=== PATIENT | female | born 1940 | race Caucasian/White ===

== ENCOUNTER 2017-02-24 07:50 | Day surgery (SDC) | payer MEDICARE ==
[~2017-02-24] VITALS: Ht 157.5 cm; Wt 54.2 kg
[~2017-02-24 07:50] MED LIST: NORE-3 PO; TRIA1TAB3 PO
[2017-02-24] MEDS ORDERED: Ondansetron 2 mg/mL 2 mL Inj ONE (07:51)
[2017-02-24] MEDS ORDERED: Dexamethasone 4 mg/mL Inj ONE (07:51)
[2017-02-24] MEDS ORDERED: Propofol 10,000 mCg/mL 20 mL Inj ONE (07:51)
[2017-02-24] MEDS ORDERED: fentaNYL-PF 50 mCg/mL 2 mL Inj ONE (07:51)
[2017-02-24 08:17] VITALS: BP 145/81; PULSE 64; RESP 16; O2SAT 99
[2017-02-24] MEDS: Lactated Ringer's 1,000 ML IV SCH ×2 (08:17→11:19)
[2017-02-24] MEDS ORDERED: Lactated Ringer's 500 ML IV PRN (10:58)
[2017-02-24] MEDS ORDERED: Lactated Ringer's 1,000 ML IV SCH (10:58)
--- NOTE | 2017-02-24 10:58 | PCM.HPANE ---
Patient Data Date of Service: February 24, 2017 ([id number]) Surgeon Admitting Provider: Attending Provider:Syed Wilson MD Primary Care Physician:Perfecto Fowler DO Other Provider:Kenny Bingham Anesthesia Reason for Visit Right Breast Cancer Ht/WT & BMI Height (Feet): 5 Height (Inches): 2 Weight (Kilograms): 54.2 Body Mass Index 21.00 Allergies Coded Allergies: Sulfa (Sulfonamide Antibiotics) (Verified Allergy, Unknown, UNKNOWN, ) Past Anesthesia History Anesthesia History: Positive for:: Anesthesia Reactions (SLOW TO EMERGE), Denies:: Malignant Hyperthermia Diabetes History Hx Diabetes?: No MRSA MRSA: No Medications Hypertension Medication: Yes (TRIAMTERENE/HCTZ) Home Meds Incl Beta Kings: No Reported Medications Norethind AC/Ethinyl Estradiol (Jinteli 1 mg-5 Mcg Tablet)1 Each Tablet0.5 Each PO QPM 02/22/17 Triamterene/HCTZ 37.5-25 mg 1 Each Tablet1 Tablet PO DAILY 0 02/20/17 History History of ENT Problems?: No HEENT History: Denies:: Abnormal Airway Denture Type: None Teeth Condition: Within Normal Limits Hx of Heart Problems?: Yes Cardiovascular History: Positive for:: Hypertension Denies:: Heart Murmur Irregular Heartbeat (RECENT INTERMITTANT BRADYCARDIA INTO 40'S-ASX) Other Cardiac History: C/OF BRUISING EASILY Hx of Respiratory Problem?: Yes Respiratory History: Positive for:: Asthma (INTERMITTANT) Denies:: Use of C-PAP Machine Hx Neurologic Problems?: Yes Hx of GI Problems?: Yes Other GI Pertinent History: S/P APPY Hx of Problems?: No Female Hx: Positive for:: Problems with Breasts? (S/P B/L BREAST BX'S RT BREAST CA=CURRENT PROBLEM) Denies:: Currently (HX MISSED AB) Skin History: Denies:: History Skin Disorders? Pressure Ulcers Hx Musculoskeletal Problems?: Yes Musculoskeletal History: Positive for:: Musculoskeletal Trauma (S/P FOOT SURGERY) Osteoarthritis (OSTEOPOROSIS) Hx of Psycho/Social Problems?: No Hx Surgeries?: Yes (APPENDECTOMY/FOOT SURGERY, B/L BREAST BX'S) Hx Any Other Health Problems?: Yes Other History: Positive for:: Cancer (RT BREAST) Denies:: Thyroid Disease Hx Diabetes: No Smoking Status: Never Smoker Have You Smoked inLast 12 mo: No Stop/Bang S-Snoring: Do You Snore Loudly: No T-Tired: feel tired, fatigued: Yes O-Obsered: Observed not breath: No P-Blood Pressure: treated: Yes B- Body Mass Index > 35 kg/m2: No A- Age over 50: Yes N- Neck Large Circumference: No G- Gender Male: No DK Total Score: 3 DK Risk Assessment: Low Risk, <3 Yes Risk Assessment Category Category 1A: Patient has history of documented sleep apnea, and HAS NOT received any narcotic, sedative or anesthesia administration during this stay. Category 1B: Patient has history of documented sleep apnea, and HAS received any narcotic , sedative or anesthesia administration during this stay Category 2: Patient has SUSPECTED Obstructive Sleep Apnea, and HAS received any narcotic , sedative or anesthesia administration during this stay. Category 3: Patient has SUSPECTED Obstructive Sleep Apnea and HAS NOT received narcotic, sedative or anesthesia administration during this stay. Category 4: Outpatient in Procedural Areas with known sleep apnea or who screen positive for High Risk via the STOP/BANG questionnaire. Exam Exam Vital Signs Vital Signs Date Time Temp Pulse Resp B/P Pulse Ox O2 Delivery O2 Flow Rate FiO2 02/24/17 08:17 36.1 64 16 145/81 99 Room Air General Appearance: Alert, Oriented X3 HEENT/AIRWAY: MP 1 Lungs: Clear to Auscultation Heart: Exam Unremarkable Meds/Labs/Diagnostics Admission Meds Current Medications Lactated Ringer's (Lr) 1,000 ml @ 120 mls/hr Q8H20M IV Last administered on t 08:17; Start 02/24/17 at 05:00; Stop 02/24/17 at 13:19 Plan Impression Patient chart reviewed, patient interviewed and anesthestic plan with risks, benefits, and alternatives discussed, and informed consent obtained. NPO per Anesth. Guidelines: Yes ASA Physical Status: ASA2 Mod Systemic Disease Anesthetic Plan: GA Bene/Risks/Altern/Consents: Yes HP Complete Prior to Induction: Yes Antione Lopez MD February 24, 2017 10:57
[2017-02-24] MEDS ORDERED: Phenylephrine 10,000 mCg/mL Inj IVPUSH PRN (11:00)
[2017-02-24] MEDS ORDERED: HYDROmorphone 1 mg/mL Inj IVPUSH PRN (11:00)
[2017-02-24] MEDS ORDERED: Dexamethasone 4 mg/mL Inj IVPUSH PRN (11:00)
[2017-02-24] MEDS ORDERED: MetoCLOpramide 5 mg/mL 2 mL Inj IVPUSH PRN (11:00)
[2017-02-24] MEDS ORDERED: Ondansetron 2 mg/mL 2 mL Inj IVPUSH PRN (11:00)
[2017-02-24] MEDS ORDERED: EPHEDrine Sulfate 50 mg/mL Inj IVPUSH PRN (11:00)
[2017-02-24] MEDS ORDERED: fentaNYL-PF 50 mCg/mL 2 mL Inj IVPUSH PRN (11:00)
[2017-02-24] MEDS ORDERED: Bupivacaine 0.5%/EPI 50 mL Inj INFILTRATE ONE (11:38)
[2017-02-24 12:23] VITALS: BP 130/66; PULSE 70; RESP 13; O2SAT 99
--- NOTE | 2017-02-24 12:27 | PCM.ANEP1 ---
Post Anesthesia Phase 1 PACU Phase 1 Assessment Date of Service: February 24, 2017 ([id number]) Vital Signs 130/66, 73, 24, 99%, 36.7 Vital Signs Date Time Temp Pulse Resp B/P Pulse Ox O2 Delivery O2 Flow Rate FiO2 02/24/17 08:17 36.1 64 16 145/81 99 Room Air Anesthetic Administered: GA Level of Alertness: Awake, talking BATES's with Equal Strength: Yes Pain: No Nausea or Vomiting: No Oxygen Delivery: Room Air Lungs: Clear to Auscultation Dermatome Level: Full Sensation Summary uneventful GA Complications: No Follow up Care: No Antione Lopez MD February 24, 2017 12:27
[2017-02-24 12:30] VITALS: BP 123/60; PULSE 66; RESP 14; O2SAT 98
[2017-02-24] MEDS ORDERED: HYDROcodone-APAP 5-325 mg Tablet PO PRN (12:30)
[2017-02-24] MEDS ORDERED: Ketorolac 15 mg/mL Inj IVPUSH PRN (12:30)
--- NOTE | 2017-02-24 12:31 | PCM.DISURG ---
Surgical Discharge Instruction Date of Service February 24, 2017 Dates of Hospitalization Date of Hospital Admission Providers Admitting Physician: Primary Care Physician: Perfecto Fowler DO Attending Physician: Syed Wilson MD Discharge Diagnosis Discharge Diagnosis Right breast cancer Diet Discharge Diet: No restrictions Activity Discharge Activity-General: No restrictions Dressing and Incisional Care Dressing Instructions: Dermabond will peel off gradually Hygiene: February shower Follow Up Plan Follow Up Plan With Dr. Wilson in surgery clinic in 2 weeks Call your provider for: Fever (over 101.5), Discharge @ incision, pus discharge Syed Wilson MD February 24, 2017 12:31
[2017-02-24 12:37] VITALS: BP 128/58; PULSE 70; RESP 14; O2SAT 98
--- NOTE | 2017-02-24 12:38 | PCM.SURGOP ---
Surgical Operative Report Date of Service: February 24, 2017 Pre Operative Diagnosis Right breast cancer Post Operative Diagnosis Same Procedure: Right partial mastectomy, right axillary sentinel lymph node biopsy Surgeon and Manager Sas: Surgeon: Syed Wilson MD Assistants: None Indication for Procedure 76-year-old woman who developed a palpable mass in the right superior breast. She then had screening mammograms which showed a focal asymmetry with spiculated margins in the right breast 12:00 posterior depth. Additional views and ultrasound were obtained, which showed a 1.2 cm irregular hypoechoic mass. I see showed invasive ductal carcinoma, well-differentiated, ER/MD positive, HER -2-negative. After discussion of risks and benefits, she agreed to proceed with right partial mastectomy and right axillary sentinel lymph node biopsy. Findings: There was a single right axillary sentinel lymph node, which was soft. The ex vivo gamma count was 98, compared to a background count of 4. Procedure Details Preoperatively, the patient underwent tracer injection into the right breast periareolar tissue. She had a palpable mass, so wire localization was not necessary. She was brought to the operating room, where she underwent smooth induction of general anesthesia with an LMA. She was placed in the supine position with the right arm out, and was prepped and draped in wide sterile fashion. A procedural pause was performed according to the SCOAP checklist, and all were found to be in agreement. A transverse incision was made in the right superior breast in the skin lines. Dissection was carried down with electrocautery through the very superficial subcutaneous tissue, and skin flaps were raised superiorly and inferiorly. Circumferential dissection was then carried out with electrocautery, using the palpable masses guide. Posterior margins of dissection were the pectoralis muscle. Muscle was not removed. The right breast tissue was elevated off the underlying chest wall and dissected free. The specimen was oriented with suture , and a specimen radiograph was obtained, confirming that the density and the radiographic clip had been successfully localized. That tissue was sent for permanent pathology. Margins of dissection were marked with hemoclips. The breast parenchyma was closed with interrupted 3-0 Vicryl sutures, and the skin incision was closed with a running 4-0 Vicryl subcuticular stitch. A curvilinear incision was made at the inferior border of the hairbearing skin in the right axilla. Dissection was carried down through the subcutaneous tissue with electrocautery until the axillary fascia was incised. Using the gamma probe as a guide, the area of maximum radiotracer activity was identified and dissected free from the surrounding tissues. There was a single right axillary sentinel lymph node. It was soft. It was dissected free using electrocautery. Ex vivo, the gamma count was 98, compared to a background count of 4 in the right axilla. There were no other worrisome lymph nodes by palpation. The right axillary sentinel lymph node was sent for permanent pathology. The axillary fascia was closed with an interrupted 3-0 Vicryl suture. The skin incision was closed with a running 4-0 Vicryl subcuticular stitch. Dermabond was applied to both incisions as a dressing. At the end of the case all needle and sponge counts were correct 2. The patient was awakened from anesthesia without difficulty, and taken to the recovery room in satisfactory condition, having tolerated the procedure well. Complications There were no periprocedural complications identified. Surgical Specimen Removed: Yes Specimen sent to Pathology: Yes Surgical Specimen description: Right breast tissue, 12:00. Right axillary sentinel lymph node. Anesthetic Plan: GA Grafts, Implants: None Output, Estimated Blood Loss: 10 Blood Administration during liang: No Drains: None Catheters: None copies to: Perfecto Fowler DO; Gordo Kinney DO; Christiano Leary MD, Joshua D MD February 24, 2017 12:37
[2017-02-24 12:52] VITALS: BP 148/62; PULSE 54; RESP 16; O2SAT 98
[2017-02-24 12:55] VITALS: BP 139/88; PULSE 60; RESP 16; O2SAT 99
--- NOTE | 2017-02-24 13:52 | DRSVH ---
PROCEDURE: NM SENTINEL NODE INJECTION ONLY, RIGHT BREAST RADIOPHARMACEUTICAL: 0.5 mCi Millipore filtered Tc-99m sulfur colloid. INDICATIONS: RIGHT BREAST CANCER PROCEDURE: The indications, alternatives, benefits, risks, and complications of the procedure were explained to the patient. Written informed consent was obtained and placed in the chart. The area around the nip ple was prepped and draped in a sterile fashion. Tc-99m sulfur colloid was injected in the outer edg e of the areola in the right breast. No image was obtained. IMPRESSION: Administration of radiotracer into the right breast periareolar region for intra-operati ve sentinel lymph node localization. Dictated by: Adan Broderick M.D. on 02/24/2017 at 13:50 Approved by: Adan Broderick M.D. on 02/24/2017 at 13:50
--- NOTE | 2017-02-27 07:54 | DRSVH ---
SPECIMEN RIGHT BREAST: 02/24/2017 CLINICAL: Breast specimen. Correlation is made to exams dated: 01/05/2017 mammogram, 12/28/2016 mammogram, 12/20/2016 mammogram - [facility], 02/17/2014 mammogram, and 01/13/2012 mammogram - [facility]. A partial mastectomy specimen was imaged for the concerning indistinct oval mass located in the righ t breast at 12 o'clock middle depth. This was described on the previous mammography and ultrasound r eports. IMPRESSION: SPECIMEN The imaged specimen includes the lesion and a biopsy clip. This exam was interpreted at Station ID: [id number]. Rony lee/tiff:02/24/2017 14:36:35 Additional referring physicians: JG GRESHAM, MICHELLE OLSON
--- NOTE | 2017-02-28 11:25 | PATH ---
SURGICAL PATHOLOGY Attending Physician:Shaneka Pinedo CASE STATUS: Signed Out PATIENT NAME: AMNA DEE PID: [id number] : 1940 DATE COLLECTED:02/24/2017 20:32 SPECIMEN: 1: Breast Mass, Excision 2: [place] Lymph Node CLINICAL HISTORY: RIGHT BREAST CANCER 1). RIGHT BREAST TISSUE, SHORT STITCH SUPERIOR, LONG LATERAL, OUT 11:49 TIF 11:58 2). RIGHT AXILLARY SENTINEL LYMPH NODE, OUT 12:00 TIF 12:03 FINAL DIAGNOSIS: 1.RIGHT BREAST TISSUE: INVASIVE DUCTAL CARCINOMA, SEE CAP CANCER SUMMARY BELOW. 2.RIGHT AXILLARY SENTINEL LYMPH NODE: NEGATIVE FOR MALIGNANCY, SEE CAP CANCER SUMMARY BELOW. CAP CANCER CASE SUMMARY INVASIVE CARCINOMA OF THE BREAST: PROCEDURE: Excisional specimen LYMPH NODE SAMPLING: Single sentinel lymph node SPECIMEN LATERALITY: Right TUMOR SITE: Mid breast superior (12 o' clock) TUMOR SIZE: 1.1 x 0.9 x 0.9 cm HISTOLOGIC TYPE: Invasive ductal carcinoma HISTOLOGIC GRADE: CHICO HISTOLOGIC SCORE 6 of 9 Glandular/Tubular differentiation: Score 2 of 3 Nuclear Pleomorphism: Score 2 of 3 Mitotic Rate: Score 2 of 3 Overall Grade: Grade 2 of 3 (intermediate grade) TUMOR FOCALITY: Single focus DUCTAL CARCINOMA IN SITU: None identified MARGINS INVASIVE CARCINOMA: Anterior: 0.1 cm Posterior: 0.8 cm Superior: 1.1 cm Inferior: 2.0 cm Medial: 1.6 cm Lateral: 1.6 cm LYMPH NODES Total number of lymph nodes examined: 1 Number of sentinel lymph nodes examined: 1 Lymph Node Involvement: Negative for malignancy Method of Evaluation of [place] Lymph Nodes: Histologic sections LYMPH-VASCULAR INVASION: Not identified PATHOLOGIC STAGING: AJCC, 7th ed., 2010 PRIMARY TUMOR: pT1c REGIONAL LYMPH NODES: pN0 (sn) ANCILLARY STUDIES: Biomarkers Performed Previously on Case: Biomarkers performed on previous biopsy (this information obtained from surgical op report) Estrogen Receptor (ER) Status: Postive Progesterone Receptor (PgR) Status: Positive HER2 (by immunohistochemistry): Negative ICD10 code C50.111 GROSS DESCRIPTION: The specimens are received in formalin, labeled with the patient's name, and sublabeled as the following: (1) right breast tissue; (2) right axillary sentinel lymph node. (1) The specimen consists of a piece of breast tissue (2.2 cm AP, 4.2 cm SI, 4.3 cm ML) with no overlying skin. The specimen is oriented with 2 black sutures (short-superior, long-lateral). No localization wire is present. The specimen is serially sectioned ML into 16 slices with the medial and lateral resection margins slices #1 and #16 respectively. The breast tissue is fatty and contains a mccord-white solid firm irregular mass (1.1 x 0.9 x 0.9 cm) within slices #7-#10. The mass is 0.1 cm from the anterior, 0.8 cm from the posterior, 1.1 cm from the superior, 2.0 cm from the inferior, 1.6 cm from the medial, and 1.6 cm from the lateral resection margins. No other nodules, masses or lesions are identified. Ink code: purple-anterior; yellow-posterior; black-superior; orange-inferior; green-medial; blue-lateral. Section code: (1A) medial resection margin, perpendicularly sectioned, technical sales representatives; (1B-1C) slice #6, tissue adjacent to mass, bisected and submitted SI, entirely submitted; (1D-1E) slice #7, bisected and submitted SI, entirely submitted; (1F-1G) slice #8, bisected and submitted SI, entirely submitted; (1H) slice #9, bisected SI, superior half submitted; (1I-1J) slice #10, bisected and submitted SI, entirely submitted; (1K) slice #11, tissue adjacent to mass, entirely submitted; (1L) lateral resection margin, perpendicularly sectioned, technical sales representatives. (2) The specimen consists of a lymph node (2.1 x 1.4 x 0.7 cm). Section code: (2A-2B) one lymph node, serially sectioned. Specimen entirely submitted. Note: Approximate total fixation time in formalin-52 hours and 30 minutes using a collection date of February 24, 2017 weeks times in fixative of 1158 and 1203. 02/25/17 JM MICRO DESCRIPTION: See diagnosis. ICD-9 CODES: CPT CODES: 1: 20886 2: 94574 PROCEDURE/ADDENDA: Addendum SPI Addendum Diagnosis TEST: ONCOTYPE DX Recurrence Score Result: 4 ER Score: 10.6 Positive WA Score: 8.4 Positive HER2 Score: 9.5 Negative Addendum Comment Please see [facility] Report [id number] for complete details. Testing and Interpretation done by [facility], [place], [place]. Testing requested by Dr. Somers, [facility]. Electronically Signed Out Ronny Somers MD Electronically Signed Out Ronny Somers MD [facility] Pathology [facility] [address], [place] [address] Technical component performed at [facility], [facility] [address], [place], [address]
== END 2017-02-24 23:59 | disposition home or self-care (01) ==
LOC: SAS 07:50
PROVIDERS: ATTEND Student in an Organized Health Care Education/Training Program
PROC: 07B50ZX Excision of Right Axillary Lymphatic, Open Approach, Diagnostic (ICD-10-PCS; 2017-02-24)
PROC: 0HBT0ZZ Excision of Right Breast, Open Approach (ICD-10-PCS; principal; 2017-02-24 10:15)
DX: C50.411 Malignant neoplasm of upper-outer quadrant of right female breast (principal); I10 Essential (primary) hypertension; E55.9 Vitamin D deficiency, unspecified; M81.0 Age-related osteoporosis without current pathological fracture; Z17.0 Estrogen receptor positive status [ER+]
CPT/HCPCS: 19301; 38525; 38792; 76098; A9541; J1100; J2405; J3010; J7120